=== PATIENT | male | born 1955 ===

== ENCOUNTER → 2021-05-28 | Outpatient (CLI) | payer MEDICARE, OTHER ==
--- NOTE | 2021-05-28 15:37 | CONS ---
CONSULTATION REASON FOR CONSULT: Sleep apnea. This patient was referred to me for sleep apnea evaluation. He is a and he is being taken care of through the [facility] in [place]. He is known to have several comorbidities. Nevertheless, he was referred to me because of excessive fatigue, tiredness and sleepiness. He has loud snoring, witnessed apneas, and he wakes up tired during the day. Currently he is retired. He used to be a clamp truck driver for many years. He goes to bed around midnight and wakes up between 6-8 a.m. in the morning. He has the same schedule over the weekend. He occasionally sleep walks. He occasionally wakes up choking, gasping for air and he does have some nocturia. No seizure activity overnight. His weight has been up slightly over the past 5 years by around 10 pounds. He wakes up probably once or twice in the middle of the night. He sleeps on his side and he does not take any naps during the day. PAST MEDICAL HISTORY: Hypertension, allergic rhinitis, coronary artery disease with previous coronary stenting, hyperlipidemia, vitamin D deficiency, osteoarthritis involving the shoulders, back, ankles and knees; PTSD/depression, acid reflux with a previous history of EGD indicating no evidence of any Murray's esophagus, history of seizure disorder, seizure- free, maintained on Keppra; history of left ankle fracture. SURGICAL HISTORY: Includes cardiac catheterizations, history of coronary stent, gastric surgery for peptic ulcer disease. FAMILY HISTORY: Father with hypertension. Mother with hypertension and diabetes mellitus. SOCIAL HISTORY: Smokes five cigarettes since the age of 17. Recently quit smoking. Rarely drinks alcohol. No history of illicit substance abuse or drug abuse. REVIEW OF SYSTEMS: Fourteen-point review of system was done, positive findings are as mentioned above in History of Present Illness. Of significance, the absence of any sleep paralysis, hallucinations or cataplexy. No history of any motor vehicle accident because of feeling drowsy or sleepy. No history of nocturnal chest pain, shortness of breath, heartburn. He has ongoing history of depression. No issues with memory or concentration. No history of any dementia. PHYSICAL EXAMINATION: BP is 156/95, pulse 94, respirations 16, temperature 98.2 saturation 95% on room air. Neck size 17 inches. Height is 5 feet 10 inches, weight is 248, BMI 35. GENERAL APPEARANCE: Calm, comfortable, no acute distress. HEAD is traumatic normocephalic. NECK is supple. Mallampati class 4. Edentulous. No goiter or neck masses. LUNGS: Diminished otherwise clear. HEART: Heart sounds are regular rate and rhythm. Normal S1, S2. No S3, S4. No murmurs. ABDOMEN: Soft, nontender, no organomegaly. EXTREMITIES: No edema, no cyanosis or clubbing. IMPRESSION: 1. Hypersomnia, [place] score of 19. Suspect obstructive sleep apnea based on history of snoring, witnessed apneas and chronic hypersomnia and sleepiness. 2. Coronary artery disease, previous coronary stenting. 3. Hypertension. 4. Hyperlipidemia. 5. History of hearing loss/tinnitus. 6. Acid reflux. 7. Osteoarthritis involving the shoulders, back, ankles and knees. 8. History of posttraumatic stress disorder. 9. History of smoking up to five cigarettes on a daily basis, quit smoking recently. 10.Allergic rhinitis. PLAN: 1. Set up this patient for polysomnogram here in the sleep center. 2. Further recommendations are to follow based on the results of the sleep study. MMODL / IJN: [id number] /
== END | disposition home or self-care (01) ==
LOC: SLEEP 14:05
PROVIDERS: ATTEND Internal Medicine Critical Care Medicine
DX: G47.10 Hypersomnia, unspecified (principal); I25.10 Atherosclerotic heart disease of native coronary artery without angina pectoris; I10 Essential (primary) hypertension; E78.5 Hyperlipidemia, unspecified; H91.90 Unspecified hearing loss, unspecified ear; K21.9 Gastro-esophageal reflux disease without esophagitis; M19.019 Primary osteoarthritis, unspecified shoulder; M17.10 Unilateral primary osteoarthritis, unspecified knee; F43.10 Post-traumatic stress disorder, unspecified; J30.9 Allergic rhinitis, unspecified; Z87.891 Personal history of nicotine dependence; Z95.5 Presence of coronary angioplasty implant and graft
CPT/HCPCS: 99202

== ENCOUNTER 2024-04-27 14:52 | Inpatient (IN) | payer OTHER, MEDICARE ==
--- NOTE | 2024-04-27 15:25 | ED ---
SOB HPI - General Source: patient, RN notes reviewed Mode of arrival: ambulatory Limitations: no limitations <Leslie Nolen - Last Filed: 04/27/24 15:23> <Gemma Read - Last Filed: 04/27/24 18:03> - General Chief Complaint: Chest Pain Stated Complaint: A-Fib Time Seen by Provider: 04/27/24 15:23 - History of Present Illness Initial Comments: Quick Note: This is a 68-year-old male who presents to the emergency department for new onset A-fib/a flutter. Patient saw his primary care provider yesterday for his 6-month checkup. He mentioned that he had been feeling very short of breath and fatigued recently. He is not quite sure how long this has been going on. They did an EKG which showed the patient to be in a flutter. Patient denies any history of this. Not currently taking any blood thinners. (Leslie Nolen) - Related Data Allergies Allergy/AdvReac Type Severity Reaction Status Date / Time bupropion [From Wellbutrin] Allergy Unknown Verified 04/27/24 15:15 fluoxetine [From Prozac] Allergy Unknown Verified 04/27/24 15:15 Penicillins Allergy Unknown Verified 04/27/24 15:15 Review of Systems ROS Other: All systems not noted in ROS Statement are negative. <Leslie Nolen - Last Filed: 04/27/24 15:23> ROS Other: All systems not noted in ROS Statement are negative. <Gemma Read - Last Filed: 04/27/24 18:03> ROS Statement: Those systems with pertinent positive or pertinent negative responses have been documented in the HPI. Past Medical History Past Medical History: Hypertension History of Any Multi-Drug Resistant Organisms: None Reported Past Surgical History: No Surgical Hx Reported Past Psychological History: PTSD Smoking Status: Current every day smoker Past Alcohol Use History: Occasional Past Drug Use History: None Reported <Leslie Nolen - Last Filed: 04/27/24 15:23> General Exam Limitations: no limitations <Leslie Nolen - Last Filed: 04/27/24 15:23> - General Exam Comments Initial Comments: Visual Physical Exam Vital signs reviewed General: Well-appearing, nontoxic, no acute distress. Head: Normocephalic, atraumatic Eyes: PERRLA, EOMI ENT: Airway patent Chest: Nonlabored breathing Skin: No visual rash, normal skin tone Neuro: Alert and oriented 3 Musculoskeletal: No gross abnormalities (Leslie Nolen) Course Vital Signs 04/27/24 04/27/24 04/27/24 15:11 15:56 17:33 Temperature 97.9 F Pulse Rate 113 H 116 H Pulse Rate [ 112 H Hardware Trainer ] Respiratory 18 20 Rate Blood Pressure 141/111 127/99 O2 Sat by Pulse 96 94 L Oximetry 04/27/24 17:56 Temperature Pulse Rate 101 H Pulse Rate [ Hardware Trainer ] Respiratory 18 Rate Blood Pressure 120/98 O2 Sat by Pulse 94 L Oximetry Medical Decision Making <Leslie Nolen - Last Filed: 04/27/24 15:23> - Lab Data Result diagrams: 04/27/24 15:24 04/27/24 15:24 <Gemma Read - Last Filed: 04/27/24 18:03> - Medical Decision Making I performed the QuickNote portion of this chart. Signed Leslie Nolen PA-C. (Leslie Nolen) Was pt. sent in by a medical professional or institution ([facility], [facility], urgent care, hospital, or senior care...) When possible be specific @ -[No] Did you speak to anyone other than the patient for history (EMS, parent, family, police, friend...)? What history was obtained from this source @ -[No] Did you review nursing and triage notes (agree or disagree)? Why? @ -[I reviewed and agree with nursing and triage notes] Were old charts reviewed (outside hosp., previous admission, EMS record, old EKG, old radiological studies, urgent care reports/EKG's, senior care records)? Report findings @ -[No old charts were reviewed] Differential Diagnosis (chest pain, altered mental status, abdominal pain women, abdominal pain men, vaginal bleeding, weakness, fever, dyspnea, syncope, headache, dizziness, GI bleed, back pain, seizure, CVA, palpatations, mental health, musculoskeletal)? @ -[not applicable] EKG interpreted by me (3pts min.). @ -Yes and demonstrates atrial flutter with a rate of 117. QRS 109. QTc of 393. No acute ST segment elevations. Some ST depression likely rate dependent X-rays interpreted by me (1pt min.). @ -[None done] CT interpreted by me (1pt min.). @ -[None done] U/S interpreted by me (1pt. min.). @ -[None done] What testing was considered but not performed or refused? (CT, X-rays, U/S, labs)? Why? @ -[None] What meds were considered but not given or refused? Why? @ -[None] Did you discuss the management of the patient with other professionals (professionals i.e. DrReema, PA, [facility], lab, RT, psych nurse, social security assessor, criminal lawyer, teacher, training officer, case folder)? Give summary @ -[No] Was smoking cessation discussed for >3mins.? @ -[No] Was critical care preformed (if so, how long)? @ -[No] Were there social determinants of health that impacted care today? How? (Homelessness, low income, unemployed, alcoholism, drug addiction, transportation, low edu. Level, literacy, decrease access to med. care, fdc, rehab)? @ -[No] Was there de-escalation of care discussed even if they declined (Discuss DNR or withdrawal of care, Hospice)? DNR status @ -[No] What co-morbidities impacted this encounter? (DM, HTN, Smoking, COPD, CAD, Cancer, CVA, ARF, Chemo, Hep., AIDS, mental health diagnosis, sleep apnea, morbid obesity)? @ -[None] Was patient admitted / discharged? Hospital course, mention meds given and route, prescriptions, significant lab abnormalities, going to OR and other pertinent info. @ -[hospital course] Undiagnosed new problem with uncertain prognosis? @ -[No] Drug Therapy requiring intensive monitoring for toxicity (Heparin, Nitro, Insulin, Cardizem)? @ -[No] Were any procedures done? @ -[No] Diagnosis/symptom? @ -[default] Acute, or Chronic, or Acute on Chronic? @ -[default] Uncomplicated (without systemic symptoms) or Complicated (systemic symptoms)? @ -[default] Side effects of treatment? @ -[No] Exacerbation, Progression, or Severe Exacerbation? @ -[No] Poses a threat to life or bodily function? How? (Chest pain, [place], [place], pneumonia, PE, COPD, DKA, ARF, appy, cholecystitis, CVA, Diverticulitis, Homicidal, Suicidal, threat to staff... and all critical care pts) @ -[No] (Gemma Read) - Lab Data Lab Results 04/27/24 04/27/24 04/27/24 Range/Units 15:24 15:24 15:24 WBC 9.4 (3.8-10.6) k/uL RBC 5.69 (4.30-5.90) m/uL Hgb 13.9 (13.0-17.5) gm/dL Hct 44.9 (39.0-53.0) % MCV 78.9 L (80.0-100.0) fL MCH 24.5 L (25.0-35.0) pg MCHC 31.1 (31.0-37.0) g/dL RDW 16.0 H (11.5-15.5) % Plt Count 341 (150-450) k/uL MPV 7.3 Neutrophils % 60 % Lymphocytes % 22 % Monocytes % 11 % Eosinophils % 3 % Basophils % 1 % Neutrophils # 5.7 (1.3-7.7) k/uL Lymphocytes # 2.1 (1.0-4.8) k/uL Monocytes # 1.0 (0-1.0) k/uL Eosinophils # 0.3 (0-0.7) k/uL Basophils # 0.1 (0-0.2) k/uL Hypochromasia Moderate Anisocytosis Slight Microcytosis Slight PT 11.1 (10.0-12.5) sec INR 1.0 (<1.2) APTT 23.9 (22.0-30.0) sec D-Dimer 0.25 (<0.60) mg/L FEU Sodium 131 L (137-145) mmol/L Potassium 4.5 (3.5-5.1) mmol/L Chloride 97 L (98-107) mmol/L Carbon Dioxide 27 (22-30) mmol/L Anion Gap 7 mmol/L BUN 10 (9-20) mg/dL Creatinine 0.87 (0.66-1.25) mg/dL Est GFR (CKD-EPI)AfAm >90 (>60 ml/min/1.73 sqM) Est GFR (CKD-EPI)NonAf 88 (>60 ml/min/1.73 sqM) Glucose 90 (74-99) mg/dL Calcium 8.5 (8.4-10.2) mg/dL Magnesium 1.9 (1.6-2.3) mg/dL Total Bilirubin 0.8 (0.2-1.3) mg/dL AST 40 (17-59) U/L ALT 35 (4-49) U/L Alkaline Phosphatase 97 (38-126) U/L Troponin I (0.000-0.034) ng/mL NT-Pro-B Natriuret Pep 1230 pg/mL Total Protein 7.2 (6.3-8.2) g/dL Albumin 4.4 (3.5-5.0) g/dL Urine Color Urine Appearance (Clear) Urine pH (5.0-8.0) Ur Specific [place] (1.001-1.035) Urine Protein (Negative) Urine Glucose (UA) (Negative) Urine Ketones (Negative) Urine Blood (Negative) Urine Nitrite (Negative) Urine Bilirubin (Negative) Urine Urobilinogen (<2.0) mg/dL Ur Leukocyte Esterase (Negative) 04/27/24 04/27/24 Range/Units 15:24 16:03 WBC (3.8-10.6) k/uL RBC (4.30-5.90) m/uL Hgb (13.0-17.5) gm/dL Hct (39.0-53.0) % MCV (80.0-100.0) fL MCH (25.0-35.0) pg MCHC (31.0-37.0) g/dL RDW (11.5-15.5) % Plt Count (150-450) k/uL MPV Neutrophils % % Lymphocytes % % Monocytes % % Eosinophils % % Basophils % % Neutrophils # (1.3-7.7) k/uL Lymphocytes # (1.0-4.8) k/uL Monocytes # (0-1.0) k/uL Eosinophils # (0-0.7) k/uL Basophils # (0-0.2) k/uL Hypochromasia Anisocytosis Microcytosis PT (10.0-12.5) sec INR (<1.2) APTT (22.0-30.0) sec D-Dimer (<0.60) mg/L FEU Sodium (137-145) mmol/L Potassium (3.5-5.1) mmol/L Chloride (98-107) mmol/L Carbon Dioxide (22-30) mmol/L Anion Gap mmol/L BUN (9-20) mg/dL Creatinine (0.66-1.25) mg/dL Est GFR (CKD-EPI)AfAm (>60 ml/min/1.73 sqM) Est GFR (CKD-EPI)NonAf (>60 ml/min/1.73 sqM) Glucose (74-99) mg/dL Calcium (8.4-10.2) mg/dL Magnesium (1.6-2.3) mg/dL Total Bilirubin (0.2-1.3) mg/dL AST (17-59) U/L ALT (4-49) U/L Alkaline Phosphatase (38-126) U/L Troponin I <0.012 (0.000-0.034) ng/mL NT-Pro-B Natriuret Pep pg/mL Total Protein (6.3-8.2) g/dL Albumin (3.5-5.0) g/dL Urine Color Colorless Urine Appearance Clear (Clear) Urine pH 7.0 (5.0-8.0) Ur Specific [place] 1.008 (1.001-1.035) Urine Protein Negative (Negative) Urine Glucose (UA) Negative (Negative) Urine Ketones Negative (Negative) Urine Blood Negative (Negative) Urine Nitrite Negative (Negative) Urine Bilirubin Negative (Negative) Urine Urobilinogen <2.0 (<2.0) mg/dL Ur Leukocyte Esterase Negative (Negative) Disposition <Leslie Nolen - Last Filed: 04/27/24 15:23> Is patient prescribed a controlled substance at d/c from ED?: No Time of Disposition: 18:03 Decision to Admit Reason: Admit from EC Decision Date: 04/27/24 Decision Time: 18:03 <Gemma Read - Last Filed: 04/27/24 18:03> Clinical Impression: New onset a-fib Disposition: ADMITTED IP TO THIS HOSP Condition: Stable Referrals: [facility] [Primary Care Provider] - 1-2 days
[2024-04-27 15:56] LABS: Anisocytosis Slight; Basophils # (A) 0.1 k/uL (0-0.2); Basophils % (A) 1 %; Eosinophils # (A) 0.3 k/uL (0-0.7); Eosinophils % (A) 3 %; HCT 44.9 % (39.0-53.0); HGB 13.9 gm/dL (13.0-17.5); Hypochromasia Moderate; Lymphocytes # (A) 2.1 k/uL (1.0-4.8); Lymphocytes % (A) 22 %; MCH 24.5 pg (25.0-35.0); MCHC 31.1 g/dL (31.0-37.0); MCV 78.9 fL (80.0-100.0); Mean Platelet Volume 7.3; Microcytosis Slight; Monocytes % (A) 11 %; Neutrophils # (A) 5.7 k/uL (1.3-7.7); Neutrophils % (A) 60 %; Platelet Count 341 k/uL (150-450); RBC 5.69 m/uL (4.30-5.90); WBC 9.4 k/uL (3.8-10.6)
[2024-04-27 16:03] LABS: ALT 35 U/L (4-49); AST 40 U/L (17-59); African American GFR (CKD) >90 (>60 ml/min/1.73 sqM); Albumin 4.4 g/dL (3.5-5.0); Alkaline Phosphatase 97 U/L (38-126); Anion Gap 7 mmol/L; Blood Urea Nitrogen 10 mg/dL (9-20); Calcium 8.5 mg/dL (8.4-10.2); Carbon Dioxide 27 mmol/L (22-30); Chloride 97 mmol/L (98-107); Glucose 90 mg/dL (74-99); Magnesium 1.9 mg/dL (1.6-2.3); Non-African American GFR(CKD) 88 (>60 ml/min/1.73 sqM); Potassium 4.5 mmol/L (3.5-5.1); Sodium 131 mmol/L (137-145); Total Bilirubin 0.8 mg/dL (0.2-1.3); Total Protein 7.2 g/dL (6.3-8.2)
[2024-04-27 16:11] LABS: NT-Pro-B-Type Natriuretic Pept 1230 pg/mL
[2024-04-27 16:12] LABS: Partial Thromboplastin Time 23.9 sec (22.0-30.0); Prothrombin Time 11.1 sec (10.0-12.5)
--- NOTE | 2024-04-27 16:39 | XR ---
EXAMINATION TYPE: XR chest 2V DATE OF EXAM: 04/27/2024 COMPARISON: None INDICATION: Chest pain TECHNIQUE: Frontal and lateral views of the chest are obtained. FINDINGS: The heart size is normal. The pulmonary vasculature is normal. The lungs are clear. IMPRESSION: 1. No acute pulmonary process.
[2024-04-27 16:41] LABS: Appearance,Urine Clear (Clear); Bilirubin,Urine Negative (Negative); Blood,Urine Negative (Negative); Color,Urine Colorless; Glucose,Urine (UA) Negative (Negative); Ketones,Urine Negative (Negative); Leukocyte Esterase,Urine Negative (Negative); Nitrite,Urine Negative (Negative); Protein,Urine Negative (Negative); Specific Gravity,Urine 1.008 (1.001-1.035); Urobilinogen,Urine <2.0 mg/dL (<2.0)
[2024-04-27] MEDS: DILTIAZEM 125 MG in SODIUM CHLORIDE 0.9% 100 ML IV SCH (17:26)
[2024-04-27] MEDS: DILTIAZEM DRIP BOLUS FROM BAG 1 MG SOLN IV ONE (17:27)
[2024-04-27] MEDS ORDERED: NALOXONE 0.4 MG/ML 1 ML VIAL IV PRN (18:03)
[2024-04-27] MEDS: HEPARIN SODIUM 1,000 UN/ML (10ML VL) IV ONE (19:04)
[2024-04-27] MEDS: HEPARIN SOD,PORK IN 0.45% NACL 25,000 UNIT in 0.45% NACL 1 250ML.BAG IV SCH (19:05)
[2024-04-27] MEDS: DILTIAZEM DRIP BOLUS FROM BAG 1 MG SOLN IV STA (20:00)
--- NOTE | 2024-04-27 22:44 | P.HPIM ---
History of Present Illness H&P Date: 04/27/24 Patient is a 68-year-old male with a PMH of hypertension who presents to the emergency room with complaints of shortness of breath, palpitations, chest discomfort, dizziness, and lower extremity edema. Patient reports the above symptoms have been ongoing for the past several months. He was seen by his PCP and was found to be in a flutter and was subsequently sent to the emergency room. Reports feeling significant better at the time of interview. Patient notes he has been experiencing intermittent substernal chest tightness along with palpitations and dyspnea on exertion over the past 2 to 3 months. He also has noticed gradually worsening lower extremity edema during this time. Denies history of any cardiac pathology including valvular disease or coronary artery disease. Denies experiencing cough, fever, chills, nausea, vomiting, abdominal pain, diarrhea. Chest x-ray in the emergency room was unremarkable with EKG showing a flutter at 117 bpm with RVR as reviewed by me. Laboratory evaluation revealed a WBC count of 9.4, hemoglobin 13.9, MCV 78.9, sodium 131, chloride 97, with an unremarkable UA, proBNP 1230, troponin less than 0.012 ED documentation reviewed and case discussed with ED provider. Review of systems: Pertinent positives and negatives as discussed in HPI, a complete review of systems was performed and all other systems are negative. Physical examination: Vital signs reviewed General: non toxic, no distress, appears at stated age, obese Derm: no unusual rashes/lesions, warm Head: atraumatic, normocephalic, symmetric Eyes: EOMI, no lid lag, anicteric sclera, pupils equal round reactive to light ENT: Nose and ears atraumatic Neck: No cervical lymphadenopathy, trachea midline, supple Mouth: no lip lesion, mucus membranes moist Cardiovascular: Irregularly irregular, no murmur, positive dorsalis pedis pulse bilateral, no edema Lungs: CTA bilateral, no rhonchi, no rales, no accessory muscle use Abdominal: soft, nontender to palpation, no guarding Ext: muscle strength 5 out of 5 in all 4 extremities grossly, no gross muscle atrophy, no contractures, Neuro: CN II-XI grossly intact, no gross focal neuro deficits Psych: Alert, oriented, appropriate affect Assessment: Newly diagnosed a flutter with RVR Hypochloremic hyponatremia Microcytosis Chronic conditions: Hypertension Imaging: Chest x-ray in the emergency room was unremarkable with EKG showing a flutter at 117 bpm with RVR as reviewed by me. Data Review: Laboratory evaluation revealed a WBC count of 9.4, hemoglobin 13.9, MCV 78.9, sodium 131, chloride 97, with an unremarkable UA, proBNP 1230, troponin less than 0.012 Plan: Continue with heparin and Cardizem infusions Cardiology consulted Cardiac monitoring Obtain echocardiogram Monitor BMP Check anemia panel DVT prophylaxis: Heparin infusion The patient is admitted with an anticipated fever than 2 midnight stay for luann luation of a flutter CODE STATUS: Full Code Discussed with: Patient Anticipated discharge place: Home Past Medical History Past Medical History: Hypertension History of Any Multi-Drug Resistant Organisms: None Reported Past Surgical History: No Surgical Hx Reported Past Psychological History: PTSD Smoking Status: Current every day smoker Past Alcohol Use History: Occasional Past Drug Use History: None Reported - Past Family History Mother Family Medical History: Hypertension Medications and Allergies Home Medications Medication Instructions Recorded Confirmed Type Cholecalciferol (Vitamin D3) 50 mcg PO DAILY 04/27/24 04/27/24 History [Vitamin D3 (50 Mcg = 2000 Iu)] Loratadine [Claritin] 10 mg PO DAILY 04/27/24 04/27/24 History Omeprazole [PriLOSEC] 20 mg PO AC-BID 04/27/24 04/27/24 History amLODIPine BESYLATE/BENAZEPRIL 2 cap PO DAILY 04/27/24 04/27/24 History [Lotrel 5-10 mg Capsule] tadalafiL 10 mg PO DAILY PRN 04/27/24 04/27/24 History Allergies Allergy/AdvReac Type Severity Reaction Status Date / Time amitriptyline Allergy Unknown Verified 04/27/24 19:18 azithromycin Allergy Unknown Verified 04/27/24 19:18 bee venom protein (honey bee) Allergy Unknown Verified 04/27/24 19:18 bupropion [From Wellbutrin] Allergy Unknown Verified 04/27/24 19:17 citalopram [From Celexa] Allergy Unknown Verified 04/27/24 19:18 fluoxetine [From Prozac] Allergy Unknown Verified 04/27/24 19:17 gabapentin Allergy Unknown Verified 04/27/24 19:18 oxycodone Allergy Unknown Verified 04/27/24 19:18 Penicillins Allergy Rash/Hives Verified 04/27/24 19:17 Physical Exam Vitals: Vital Signs Temp Pulse Pulse Resp BP BP Pulse Ox 04/27/24 21:50 77 04/27/24 21:35 97.9 F 77 16 128/86 97 04/27/24 21:02 98.0 F 76 14 130/89 92 L 04/27/24 19:30 112 H 22 121/98 93 L 04/27/24 19:08 121 H 16 121/87 93 L 04/27/24 17:56 101 H 18 120/98 94 L 04/27/24 17:33 116 H 20 127/99 94 L 04/27/24 15:56 112 H 04/27/24 15:11 97.9 F 113 H 18 141/111 96 Intake and Output 04/27/24 04/27/24 04/27/24 06:59 14:59 22:59 Intake Total 503.083 Balance 503.083 Intake: Intake, IV Titration 23.083 Amount Diltiazem 125 mg In 13.083 Sodium Chloride 0.9% 100 ml @ 10 MG/HR 10 mls/hr IV .[id number] [facility] Rx#: [id number] Heparin Sod,Pork in 0.45% 10 NaCl 25,000 unit In 0.45 % NaCl 1 250ml.bag @ 9.19 UNITS/KG/HR 10.004 mls/ hr IV .Q24H [facility] Rx#: [id number] Oral 480 Other: Weight 108.862 kg Results CBC & Chem 7: 04/27/24 15:24 04/27/24 15:24 Labs: Abnormal Lab Results - Last 24 Hours (Table) 04/27/24 04/27/24 Range/Units 15:24 15:24 MCV 78.9 L (80.0-100.0) fL MCH 24.5 L (25.0-35.0) pg RDW 16.0 H (11.5-15.5) % Sodium 131 L (137-145) mmol/L Chloride 97 L (98-107) mmol/L Thrombosis Risk Factor Assmnt - Choose All That Apply Any of the Below Risk Factors Present?: No
[2024-04-28] MEDS: HEPARIN SODIUM 1,000 UN/ML (10ML VL) IV PRN (02:21)
[2024-04-28 09:02] LABS: Anisocytosis Slight; Basophils # (A) 0.1 k/uL (0-0.2); Basophils % (A) 1 %; Eosinophils # (A) 0.3 k/uL (0-0.7); Eosinophils % (A) 4 %; HCT 41.2 % (39.0-53.0); HGB 12.5 gm/dL (13.0-17.5); Hypochromasia Moderate; Lymphocytes # (A) 1.6 k/uL (1.0-4.8); Lymphocytes % (A) 22 %; MCH 23.9 pg (25.0-35.0); MCHC 30.3 g/dL (31.0-37.0); MCV 79.1 fL (80.0-100.0); Mean Platelet Volume 7.4; Microcytosis Slight; Monocytes # (A) 0.6 k/uL (0-1.0); Monocytes % (A) 8 %; Neutrophils # (A) 4.4 k/uL (1.3-7.7); Neutrophils % (A) 63 %; Platelet Count 317 k/uL (150-450); RBC 5.21 m/uL (4.30-5.90); RDW 16.3 % (11.5-15.5)
[2024-04-28 09:07] LABS: INR 1.1 (<1.2); Partial Thromboplastin Time 54.8 sec (22.0-30.0); Prothrombin Time 11.6 sec (10.0-12.5)
[2024-04-28 09:18] LABS: African American GFR (CKD) >90 (>60 ml/min/1.73 sqM); Anion Gap 7 mmol/L; Blood Urea Nitrogen 9 mg/dL (9-20); Calcium 8.1 mg/dL (8.4-10.2); Carbon Dioxide 25 mmol/L (22-30); Chloride 96 mmol/L (98-107); Glucose 163 mg/dL (74-99); Non-African American GFR(CKD) >90 (>60 ml/min/1.73 sqM); Potassium 4.5 mmol/L (3.5-5.1); Sodium 128 mmol/L (137-145)
[2024-04-28] MEDS: PANTOPRAZOLE 40 MG TABLET PO SCH (09:31)
[2024-04-28] MEDS: lisinopriL 20 MG TAB PO SCH (09:32)
[2024-04-28] MEDS: amLODIPine 10 MG TAB PO SCH (10:49)
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
--- NOTE | 2024-04-28 11:15 | CA ---
Transthoracic Echo Report Name: Chao Rascon Age: 68 Gender: M : 1955 Exam Date: 04/28/2024 07:59 Exam Location: [facility] Ht (in): 71 Wt (lb): 240 Ordering Physician: Keena Cadena MD Attending/Referring Phys: Gas Meter Mechanic Kirstin Liang RDCS Procedure CPT: Indications: aflutter Cardiac Hx: Technical Quality: Technically difficult study Contrast 1: Definity Total Dose (mL): 2 Contrast 2: Total Dose (mL): MEASUREMENTS (Male / Female) Normal Values 2D ECHO LV Diastolic Diameter PLAX 5.9 cm 4.2 - 5.9 / 3.9 - 5.3 cm LV Systolic Diameter PLAX 5.2 cm IVS Diastolic Thickness 1.0 cm 0.6 - 1.0 / 0.6 - 0.9 cm LVPW Diastolic Thickness 1.2 cm 0.6 - 1.0 / 0.6 - 0.9 cm LV Relative Wall Thickness 0.4 RV Internal Dim ED PLAX 2.0 cm LV Diastolic Volume MOD 4C 119.0 cm??? LV Systolic Volume MOD 4C 81.1 cm??? LV Ejection Fraction MOD 4C 31.8 % LV Cardiac Index MOD 4C 1199.4 cm???/min???m??? LV Diastolic Length 4C 8.0 cm LV Systolic Length 4C 7.4 cm LA Volume 100.8 cm??? 18 - 58 / 22 - 52 cm??? LA Volume Index 42.5 cm???/m??? 16 - 28 cm???/m??? M-MODE Aortic Root Diameter MM 3.8 cm LA Systolic Diameter MM 4.7 cm LA Ao Ratio MM 1.2 AV Cusp Separation MM 2.6 cm DOPPLER AI Peak Velocity 302.3 cm/s AI Peak Gradient 36.6 mmHg AI Pressure Half Time 1080.3 ms TR Peak Velocity 300.5 cm/s TR Peak Gradient 46.3 mmHg Right Atrial Pressure 8.0 mmHg Pulmonary Artery Systolic Pressu 44.1 mmHg Right Ventricular Systolic Press 44.1 mmHg FINDINGS Left Ventricle Left ventricular ejection fraction is estimated at 30-35%. Left ventricular cavity size normal. Severely reduced global left ventricular systolic function. Left ventricular wall thickness normal. Left ventricular cavity size at the upper limits of normal. Right Ventricle Normal right ventricular size and function. Mild pulmonary hypertension. Right ventricular systolic pressure estimated at 44mmHg. Right Atrium Moderate right atrial dilatation. Left Atrium Severely increased left atrial volume. Mildly increased left atrial area. Mitral Valve Mitral valve thickened. Mitral annular calcification. Moderate mitral regurgitation. Aortic Valve Trileaflet aortic valve. Diffuse thickening (sclerosis) of the aortic valve cusps without reduced excursion. Trace to mild aortic regurgitation. Tricuspid Valve Structurally normal tricuspid valve. Mild tricuspid regurgitation. Pulmonic Valve Structurally normal pulmonic valve. Trace pulmonic regurgitation. Pericardium No pericardial or pleural effusion. Aorta Mildly dilated aortic annulus. CONCLUSIONS Technically difficult study. Definity was used Impaired LV function with EF between 30 to 35% Moderate mitral regurgitation Previewed by: Dr. Rene Mclaughlin MD (Electronically Signed) Final Date: 28 April 2024 11:14
[2024-04-28] MEDS: METOPROLOL TARTRATE 50 MG TAB PO SCH (13:30)
[2024-04-28] MEDS: FUROSEMIDE 10 MG/ML 2 ML VIAL IV SCH (13:30)
--- NOTE | 2024-04-28 14:13 | P.PN ---
Subjective Progress Note Date: 04/28/24 Hospital course: Patient is a pleasant 68-year-old male with a past medical history of hypertension, GERD and nicotine dependence. He presented to the hospital on 04/27/2024 from his PCPs office for concerns of new onset atrial flutter. Patient presented to his PCPs office for 6-month checkup with reports of feeling shortness of breath, exertional fatigue, bilateral lower extremity edema and palpitations. At that time patient was found to be in new onset atrial flutter and he was sent to the emergency department for evaluation. Upon arrival to our facility, patient underwent evaluation in the emergency department. Vital signs upon arrival show blood pressure 141/111, heart rate 113, respiratory rate 18, temp 97.9 F, and SpO2 of 96% on room air. EKG completed showing atrial flutter with RVR at 117 bpm. Chest x-ray negative for acute cardiopulmonary process. Labs completed and reviewed. CBC showing no significant abnormalities. Coagulation profile normal findings. D-dimer normal at 0.25. BMP showing hyponatremia with sodium of 131 and hypochloremia with chloride of 97. Liver profile was unremarkable. Troponin was negative at less than 0.012 and proBNP was elevated at 1230. He was started on low intensity heparin infusion and Cardizem infusion for rate control. Patient was admitted under our services with consultation to cardiology. Troponins were trended overnight all negative at less than 0.012 x 3 draws. TSH was normal findings at 1.960. Echocardiogram was completed showing a reduced EF of 30 to 35% and moderate mitral regurgitation. Physical exam: Vital signs reviewed and stable. General: Nontoxic, no distress and appears stated age. Derm: Skin warm and dry, normal coloration for ethnicity. Head: Atraumatic, normocephalic and symmetric. Eyes: EOMs intact, no lid lag, and anicteric sclera Mouth: no lip lesions, mucus membranes moist Cardiovascular: regular rate and rhythm with normal S1S2, systolic murmur, positive posterior tibial pulses bilaterally, and cap refill < 2 seconds. Lungs: Respirations even, regular, and unlabored on room air. Lungs CTA bilaterally, no rhonchi, no rales, no wheezing, and no accessory muscle usage. Abdominal: soft, nontender to palpation, no guarding, no appreciable organomegaly Ext: ROM intact. No gross muscle atrophy, 2+ bilateral lower extremity edema, no contractures Neuro: Speech clear, face symmetrical and CN II-XII grossly intact with no noted focal neuro deficits Psych: Alert and oriented to person, place, time, and situation. Appropriate and pleasant affect. Assessment and Plan of Care: New onset atrial flutter with RVR Acute systolic heart failure with his EF of 30 to 35% Hypertension Nicotine dependence GERD -Cardiology consulted, appreciate recommendations -Troponins were trended overnight all negative at less than 0.012 x 3 draws. -Continue heparin infusion pending further recommendations from cardiology, monitor PTT every 6 hours goal therapeutic rate of 44 to 79 seconds. Currently PTT therapeutic at 54.8 seconds. -TSH was normal findings at 1.960. -Echocardiogram was completed showing a reduced EF of 30 to 35% and moderate mitral regurgitation. -Telemetry monitoring -Cardiac diet -Continue amlodipine/benazepril 6-10 mg tablets, 2 tablets daily. -Patient remains on Cardizem infusion at 10 mg/h. -Recommend smoking cessation and order placed for nicotine patch 21 mg daily. -GI prophylaxis with Protonix 40 mg daily. Data and Imaging reviewed: -Troponins were trended overnight all negative at less than 0.012 x 3 draws. TSH was normal findings at 1.960. -Echocardiogram was completed and report reviewed showing a reduced EF of 30 to 35% and moderate mitral regurgitation. CODE STATUS: Full code DVT prophylaxis: Heparin Anticipated discharge date: Pending clinical course Anticipated discharge place: Home Patient was seen independently by Nurse Pracitioner. This document was prepared using [employer] dictation software. Please allow for errors in cotton ginner helper, while rare they do occur. Timmy Ugarte NP rendered care for this patient independently, reviewed the findings and plan as documented in the note above. I did not physically speak with or examine the patient on this date. Objective - Vital Signs Vital signs: Vital Signs Temp 97.9 F 04/27/24 21:35 Pulse 70 04/28/24 04:00 Resp 16 04/28/24 04:00 BP 127/74 04/28/24 04:00 Pulse Ox 92 L 04/28/24 04:00 FiO2 Intake & Output 04/27/24 04/28/24 04/28/24 18:59 06:59 18:59 Intake Total 575.445 Balance 575.445 Weight 108.862 kg 107.6 kg Intake: Intake, IV Titration 95.445 Amount Diltiazem 125 mg In 13.083 Sodium Chloride 0.9% 100 ml @ 10 MG/HR 10 mls/hr IV .[id number] [facility] Rx#: [id number] Heparin Sod,Pork in 0.45% 82.362 NaCl 25,000 unit In 0.45 % NaCl 1 250ml.bag @ 9.19 UNITS/KG/HR 10.004 mls/ hr IV .Q24H [facility] Rx#: [id number] Oral 480 Other: # Voids 3 - Labs CBC & Chem 7: 04/28/24 08:38 04/28/24 08:38 Labs: Abnormal Lab Results - Last 24 Hours (Table) 04/27/24 04/27/24 04/28/24 Range/Units 15:24 15:24 01:01 MCV 78.9 L (80.0-100.0) fL MCH 24.5 L (25.0-35.0) pg RDW 16.0 H (11.5-15.5) % APTT 35.1 H (22.0-30.0) sec Sodium 131 L (137-145) mmol/L Chloride 97 L (98-107) mmol/L
[2024-04-28 15:14] LABS: % Iron Saturation 6.49 (15.00-50.00); Ferritin 15.2 ng/mL (22.0-322.0); Iron 25 UG/DL (65-175); Total Iron Binding Capacity 385 UG/DL (228-460)
[2024-04-28] MEDS: NICOTINE 21MG/24HR PATCH TRANSDERM SCH (17:24)
[2024-04-28] MEDS: IPRATROPIUM-ALBUTEROL 3 ML NEB INHALATION PRN (17:34)
[2024-04-28] MEDS: APIXABAN 5 MG TAB PO SCH (21:06)
[2024-04-29 09:45] LABS: African American GFR (CKD) 89 (>60 ml/min/1.73 sqM); Anion Gap 5 mmol/L; Blood Urea Nitrogen 15 mg/dL (9-20); Calcium 7.9 mg/dL (8.4-10.2); Carbon Dioxide 28 mmol/L (22-30); Chloride 94 mmol/L (98-107); Glucose 135 mg/dL (74-99); Non-African American GFR(CKD) 77 (>60 ml/min/1.73 sqM); Potassium 4.2 mmol/L (3.5-5.1); Sodium 127 mmol/L (137-145)
--- NOTE | 2024-04-29 14:13 | P.PN ---
Subjective Progress Note Date: 04/29/24 Hospital course: Patient is a pleasant 68-year-old male with a past medical history of hypertension, GERD and nicotine dependence. He presented to the hospital on 04/27/2024 from his PCPs office for concerns of new onset atrial flutter. Patient presented to his PCPs office for 6-month checkup with reports of feeling shortness of breath, exertional fatigue, bilateral lower extremity edema and palpitations. At that time patient was found to be in new onset atrial flutter and he was sent to the emergency department for evaluation. Upon arrival to our facility, patient underwent evaluation in the emergency department. Vital signs upon arrival show blood pressure 141/111, heart rate 113, respiratory rate 18, temp 97.9 F, and SpO2 of 96% on room air. EKG completed showing atrial flutter with RVR at 117 bpm. Chest x-ray negative for acute cardiopulmonary process. Labs completed and reviewed. CBC showing no significant abnormalities. Coagulation profile normal findings. D-dimer normal at 0.25. BMP showing hyponatremia with sodium of 131 and hypochloremia with chloride of 97. Liver profile was unremarkable. Troponin was negative at less than 0.012 and proBNP was elevated at 1230. He was started on low intensity heparin infusion and Cardizem infusion for rate control. Patient was admitted under our services with consultation to cardiology. Troponins were trended overnight all negative at less than 0.012 x 3 draws. TSH was normal findings at 1.960. Echocardiogram was completed showing a reduced EF of 30 to 35% and moderate mitral regurgitation. Physical exam: Vital signs reviewed and stable. General: Nontoxic, no distress and appears stated age. Derm: Skin warm and dry, normal coloration for ethnicity. Head: Atraumatic, normocephalic and symmetric. Eyes: EOMs intact, no lid lag, and anicteric sclera Mouth: no lip lesions, mucus membranes moist Cardiovascular: regular rate and rhythm with normal S1S2, systolic murmur, positive posterior tibial pulses bilaterally, and cap refill < 2 seconds. Lungs: Respirations even, regular, and unlabored on room air. Lungs CTA bilaterally, no rhonchi, no rales, no wheezing, and no accessory muscle usage. Abdominal: soft, nontender to palpation, no guarding, no appreciable organomegaly Ext: ROM intact. No gross muscle atrophy, 2+ bilateral lower extremity edema, no contractures Neuro: Speech clear, face symmetrical and CN II-XII grossly intact with no noted focal neuro deficits Psych: Alert and oriented to person, place, time, and situation. Appropriate and pleasant affect. Assessment and Plan of Care: New onset atrial flutter with RVR Acute systolic heart failure with his EF of 30 to 35% Hypochloremic hyponatremia Hypertension Nicotine dependence GERD -Cardiology consulted, appreciate recommendations -Heparin infusion was discontinued and patient started on Eliquis 5 mg twice daily. -Cardizem infusion discontinued and patient started on metoprolol 50 mg twice daily and currently maintaining a controlled ventricular rate. -Echocardiogram was completed showing a reduced EF of 30 to 35% and moderate mitral regurgitation. -Patient was started on Lasix 20 mg IVP every 12 hours. -Patient to remain on continuous telemetry monitoring -Cardiac diet -Continue amlodipine/benazepril 6-10 mg tablets, 2 tablets daily. -Recommend smoking cessation and order placed for nicotine patch 21 mg daily. -GI prophylaxis with Protonix 40 mg daily. Data and Imaging reviewed: -Morning labs completed and reviewed. BMP revealing slightly worsening hyponatremia with sodium of 127 and chloride of 94. -Echocardiogram was completed and report reviewed showing a reduced EF of 30 to 35% and moderate mitral regurgitation. -Vital signs reviewed. Blood pressure 137/80, heart rate 74, respiratory rate 22, temp 97.7 F, and SpO2 of 96% on 2 L. CODE STATUS: Full code DVT prophylaxis: Heparin Anticipated discharge date: Pending clinical course Anticipated discharge place: Home Patient was seen independently by Nurse Pracitioner. This document was prepared using [employer] dictation software. Please allow for e rrors in cloth tester quality, while rare they do occur. Timmy Ugarte NP rendered care for this patient independently, reviewed the findings and plan as documented in the note above. I did not physically speak with or examine the patient on this date. Objective - Vital Signs Vital signs: Vital Signs Temp 97.5 F L 04/29/24 08:25 Pulse 71 04/29/24 08:25 Resp 20 04/29/24 08:25 BP 107/70 04/29/24 08:25 Pulse Ox 95 04/29/24 08:25 FiO2 Intake & Output 04/28/24 04/29/24 04/29/24 18:59 06:59 18:59 Intake Total 1131.917 125 10 Output Total 300 Balance 1131.917 -175 10 Weight 108.4 kg Intake: IV 10 Invasive Line 1 10 Intake, IV Titration 111.917 125 Amount Diltiazem 125 mg In 111.917 125 Sodium Chloride 0.9% 100 ml @ 10 MG/HR 10 mls/hr IV .[id number] [facility] Rx#: [id number] Oral 1020 0 Output: Urine 300 Other: # Voids 0 # Bowel Movements 0 - Labs CBC & Chem 7: 04/30/24 08:17 04/30/24 08:17 Labs: Abnormal Lab Results - Last 24 Hours (Table) 04/28/24 04/28/24 04/28/24 Range/Units 08:38 08:38 08:38 Hgb 12.5 L (13.0-17.5) gm/dL MCV 79.1 L (80.0-100.0) fL MCH 23.9 L (25.0-35.0) pg MCHC 30.3 L (31.0-37.0) g/dL RDW 16.3 H (11.5-15.5) % APTT 54.8 H (22.0-30.0) sec Sodium 128 L (137-145) mmol/L Chloride 96 L (98-107) mmol/L Glucose 163 H (74-99) mg/dL Calcium 8.1 L (8.4-10.2) mg/dL Iron 25 L (65-175) UG/DL % Saturation 6.49 L (15.00-50.00) Ferritin 15.2 L (22.0-322.0) ng/mL
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
[2024-04-29] MEDS: DAPAGLIFLOZIN PROPANEDIOL 10 MG TABLET PO SCH (16:17)
[2024-04-30 08:55] LABS: HCT 38.4 % (39.0-53.0); Hypochromasia Moderate; MCH 24.7 pg (25.0-35.0); MCHC 31.2 g/dL (31.0-37.0); MCV 79.2 fL (80.0-100.0); Mean Platelet Volume 7.7; Platelet Count 302 k/uL (150-450); RBC 4.85 m/uL (4.30-5.90); RDW 15.9 % (11.5-15.5)
[2024-04-30 09:01] LABS: Carbon Dioxide 30 mmol/L (22-30); Chloride 95 mmol/L (98-107); Glucose 84 mg/dL (74-99); Potassium 4.7 mmol/L (3.5-5.1); Sodium 130 mmol/L (137-145)
[2024-04-30 09:02] LABS: African American GFR (CKD) >90 (>60 ml/min/1.73 sqM); Anion Gap 5 mmol/L; Blood Urea Nitrogen 16 mg/dL (9-20); Calcium 8.2 mg/dL (8.4-10.2); Magnesium 1.9 mg/dL (1.6-2.3); Non-African American GFR(CKD) 85 (>60 ml/min/1.73 sqM)
[2024-04-30] MEDS: IV FLUID CONTINUATION 1,000 ML IV ONE (09:48)
[2024-04-30] MEDS: BENZOCAINE SPRAY 1 CAN TOPICAL ONE ×2 (09:56→10:20)
[2024-04-30] MEDS ORDERED: LIDOCAINE 1% INJ 10MG/ML (20 ML MDV) ONE (10:20)
[2024-04-30] MEDS ORDERED: PROPOFOL 10 MG/ML 20 ML VIAL IV ONE (10:20)
--- NOTE | 2024-04-30 10:42 | P.PN ---
Subjective Progress Note Date: 04/30/24 PROGRESS NOTE The patient is a 67-year-old male with known history of CAD, has underwent cardiac catheterization in 2008 and was found to have mild to moderate disease with ectatic vessel. He presented with atrial flutter of unknown duration. He was found to have cardiomyopathy with an ejection fraction of 30 to 35%. He continues to be dyspneic has no chest discomfort, no dizziness or palpitations. He continues to have episodes of rapid ventricular response. Hemodynamically he is stable. He denies any nausea or vomiting. Medications: Eliquis 5 mg twice a day, Farxiga 10 mg daily, Lasix 20 mg IV every 12 hours, Zestril 20 mg daily, metoprolol 50 mg twice a day. PHYSICAL EXAMINATION: Blood pressure 110/70 heart rate 110 LUNGS: Clear to auscultation HEART: Irregular rate and rhythm, S1, S2. No S3. No systolic murmur ABDOMEN: Soft, nontender, no organomegaly EXTREMETIES: Trace to 1+ edema LAB: Hemoglobin 12, potassium 4.7, BUN 16, creatinine 0.92. IMPRESSION: 1. Atrial flutter with rapid ventricle response of unknown duration 2. Cardiomyopathy probably secondary to the atrial flutter 3. History of mild to moderate CAD by cardiac catheterization in 2008 4. History of tobacco use PLAN: 1. Proceed with JOLANTA cardioversion to restore sinus mechanism 2. Change to oral diuretics 3. Start spironolactone 4. Depending on his progress further recommendations will be made Objective - Vital Signs Vital signs: Vital Signs Temp 97.8 F 04/30/24 08:22 Pulse 73 04/30/24 09:40 Resp 18 04/30/24 09:40 BP 110/79 04/30/24 09:40 Pulse Ox 96 04/30/24 09:40 FiO2 Intake & Output 04/29/24 04/30/24 04/30/24 18:59 06:59 18:59 Intake Total 1158 0 Balance 1158 0 Weight 60.963 kg Intake: IV 20 Invasive Line 1 20 Oral 1138 0 - Labs CBC & Chem 7: 04/30/24 08:17 04/30/24 08:17 Labs: Abnormal Lab Results - Last 24 Hours (Table) 04/30/24 04/30/24 Range/Units 08:17 08:17 Hgb 12.0 L (13.0-17.5) gm/dL Hct 38.4 L (39.0-53.0) % MCV 79.2 L (80.0-100.0) fL MCH 24.7 L (25.0-35.0) pg RDW 15.9 H (11.5-15.5) % Sodium 130 L (137-145) mmol/L Chloride 95 L (98-107) mmol/L Calcium 8.2 L (8.4-10.2) mg/dL
--- NOTE | 2024-04-30 10:44 | P.PCN ---
Date of Procedure: 04/30/24 Description of Procedure: Indication: Atrial flutter Procedure Description: After explaining the procedure to the patient, it's risk and complications, blood pressure, heart rate and O2 saturation were monitored. The throat was sprayed with Cetacaine. Patient received sedation per anesthesia department. The probe was introduced into the esophagus without difficulty. Images were obtained. Following that, the probe was removed. There was no immediate complication. Findings: Left atrial size is dilated, left atrial appendage is normal. Left ventricle systolic function is moderately to severely impaired with global hypokinesis. Ejection fraction 30 to 35%. The aortic valve, mitral valve and tricuspid valve appears to be normal. Descending thoracic aorta appears to be normal. No pericardial fusion was noted. Contrast bubble study revealed no shunting across the interatrial septum. Doppler: Pulse wave and color Doppler were obtained, and revealed moderate mitral and tricuspid regurgitation with no shunting across the interatrial septum Conclusion: 1. Dilated left atrium with normal appearance of the left atrial appendage 2. Moderately to severely impaired low ventricle systolic function with global hypokinesis 3. Moderate mitral and tricuspid regurgitation 4. No shunting across the interatrial septum 5. No pericardial effusion Cardioversion: After obtaining JOLANTA and sedated state synchronized biphasic cardioversion using 150 J was performed, there was no immediate complications.
[2024-04-30] MEDS: SPIRONOLACTONE 25 MG TAB PO SCH (11:44)
--- NOTE | 2024-04-30 16:21 | P.PN ---
Subjective Progress Note Date: 04/30/24 Hospital course: Patient is a pleasant 68-year-old male with a past medical history of hypertension, GERD and nicotine dependence. He presented to the hospital on 04/27/2024 from his PCPs office for concerns of new onset atrial flutter. Patient presented to his PCPs office for 6-month checkup with reports of feeling shortness of breath, exertional fatigue, bilateral lower extremity edema and palpitations. At that time patient was found to be in new onset atrial flutter and he was sent to the emergency department for evaluation. Upon arrival to our facility, patient underwent evaluation in the emergency department. Vital signs upon arrival show blood pressure 141/111, heart rate 113, respiratory rate 18, temp 97.9 F, and SpO2 of 96% on room air. EKG completed showing atrial flutter with RVR at 117 bpm. Chest x-ray negative for acute cardiopulmonary process. Labs completed and reviewed. CBC showing no significant abnormalities. Coagulation profile normal findings. D-dimer normal at 0.25. BMP showing hyponatremia with sodium of 131 and hypochloremia with chloride of 97. Liver profile was unremarkable. Troponin was negative at less than 0.012 and proBNP was elevated at 1230. He was started on low intensity heparin infusion and Cardizem infusion for rate control. Patient was admitted under our services with consultation to cardiology. Troponins were trended overnight all negative at less than 0.012 x 3 draws. TSH was normal findings at 1.960. Echocardiogram was completed showing a reduced EF of 30 to 35% and moderate mitral regurgitation. Patient was taken down for JOLANTA with cardioversion. JOLANTA revealed dilated left atrium, moderately to severely impaired low ventricular systolic function with global hypokinesis, and moderate mitral and tricuspid regurgitation with a EF of 30 to 35%. Cardioversion was successful in c onverting patient back into normal sinus mechanism. Physical exam: Vital signs reviewed and stable. General: Nontoxic, no distress and appears stated age. Derm: Skin warm and dry, normal coloration for ethnicity. Head: Atraumatic, normocephalic and symmetric. Eyes: EOMs intact, no lid lag, and anicteric sclera Mouth: no lip lesions, mucus membranes moist Cardiovascular: regular rate and rhythm with normal S1S2, systolic murmur, positive posterior tibial pulses bilaterally, and cap refill < 2 seconds. Lungs: Respirations even, regular, and unlabored on room air. Lungs CTA bilaterally, no rhonchi, no rales, no wheezing, and no accessory muscle usage. Abdominal: soft, nontender to palpation, no guarding, no appreciable organomegaly Ext: ROM intact. No gross muscle atrophy, 2+ bilateral lower extremity edema, no contractures Neuro: Speech clear, face symmetrical and CN II-XII grossly intact with no noted focal neuro deficits Psych: Alert and oriented to person, place, time, and situation. Appropriate and pleasant affect. Assessment and Plan of Care: New onset atrial flutter with RVR Acute systolic heart failure with his EF of 30 to 35% Hypochloremic hyponatremia, improving with IV diuresis Hypertension Nicotine dependence GERD -Cardiology planning, took patient for JOLANTA with cardioversion. -JOLANTA revealed dilated left atrium, moderately to severely impaired low ventricular systolic function with global hypokinesis, and moderate mitral and tricuspid regurgitation with a EF of 30 to 35%. -Cardioversion was successful in converting patient back into normal sinus mechanism. -Patient to continue Eliquis 5 mg twice daily and metoprolol 50 mg twice daily. -Patient was started on Lasix 20 mg IVP every 12 hours. -Patient to remain on continuous telemetry monitoring -Continue amlodipine/benazepril 6-10 mg tablets, 2 tablets daily. -Recommend smoking cessation and order placed for nicotine patch 21 mg daily. -GI prophylaxis with Protonix 40 mg daily. Data and Imaging reviewed: -Morning labs completed and reviewed. CBC showing stable macrocytic anemia with hemoglobin of 12.0. BMP showing improvement of hypochloremic hyponatremia with sodium of 130 and chloride of 95. Museum was 1.9. TSH was 1.960. -JOLANTA revealed dilated left atrium, moderately to severely impaired low ventricular systolic function with global hypokinesis, and moderate mitral and tricuspid regurgitation with a EF of 30 to 35%. Cardioversion was successful in converting patient back into normal sinus mechanism. -Vital signs reviewed. Blood pressure 114/78, heart rate 86, respiratory rate 20, temp 97.6 F, and SpO2 of 95% on 3 L. CODE STATUS: Full code DVT prophylaxis: Heparin Anticipated discharge date: Pending clinical course Anticipated discharge place: Home Patient was seen independently by Nurse Pracitioner. This document was prepared using [employer] dictation software. Please allow for errors in plant protection superintendent, while rare they do occur. .Timmy Ugarte NP rendered care for this patient independently, reviewed the findings and plan as documented in the note above. I did not physically speak with or examine the patient on this date. Objective - Vital Signs Vital signs: Vital Signs Temp 97.8 F 04/30/24 08:22 Pulse 128 H 04/30/24 08:22 Resp 20 04/30/24 08:22 BP 115/78 04/30/24 08:22 Pulse Ox 97 04/30/24 08:22 FiO2 Intake & Output 04/29/24 04/30/24 04/30/24 18:59 06:59 18:59 Intake Total 1158 0 Balance 1158 0 Weight 60.963 kg Intake: IV 20 Invasive Line 1 20 Oral 1138 0 - Labs CBC & Chem 7: 04/30/24 08:17 04/30/24 08:17 Labs: Abnormal Lab Results - Last 24 Hours (Table) 04/29/24 Range/Units 09:05 Sodium 127 L (137-145) mmol/L Chloride 94 L (98-107) mmol/L Glucose 135 H (74-99) mg/dL Calcium 7.9 L (8.4-10.2) mg/dL
[2024-04-30] MEDS: FUROSEMIDE 20 MG TAB PO SCH (22:25)
[2024-05-01 06:54] LABS: Anisocytosis Slight; HCT 38.5 % (39.0-53.0); Hypochromasia Moderate; MCH 24.8 pg (25.0-35.0); MCHC 31.1 g/dL (31.0-37.0); MCV 79.8 fL (80.0-100.0); Mean Platelet Volume 7.2; Platelet Count 284 k/uL (150-450); RBC 4.83 m/uL (4.30-5.90); RDW 16.3 % (11.5-15.5)
[2024-05-01 07:22] LABS: African American GFR (CKD) 89 (>60 ml/min/1.73 sqM); Anion Gap 4 mmol/L; Blood Urea Nitrogen 17 mg/dL (9-20); Carbon Dioxide 31 mmol/L (22-30); Chloride 94 mmol/L (98-107); Glucose 85 mg/dL (74-99); Magnesium 2.1 mg/dL (1.6-2.3); Non-African American GFR(CKD) 77 (>60 ml/min/1.73 sqM); Potassium 4.6 mmol/L (3.5-5.1); Sodium 129 mmol/L (137-145)
--- NOTE | 2024-05-01 10:05 | P.DS ---
Providers Date of admission: 04/27/24 18:04 Expected date of discharge: 05/01/24 Attending physician: Katelyn Dickinson MD Consults: 04/27/24 18:03 Consult Physician Urgent Consulting Provider: [facility] Consult Reason/Comments: new onset afib Do you want consulting provider notified?: Yes Primary care physician: [facility] Course: Discharge Diagnosis: New onset atrial flutter with RVR. Patient was started on anticoagulation and initially Cardizem infusion followed by placement on metoprolol. Echocardiogram was completed showing a reduced EF of 30 to 35% and moderate mitral regurgitation. Patient was taken down for JOLANTA with cardioversion. JOLANTA revealed dilated left atrium, moderately to severely impaired low ventricular systolic function with global hypokinesis, and moderate mitral and tricuspid regurgitation with a EF of 30 to 35%. Cardioversion was successful in conver ting patient back into normal sinus mechanism. Patient monitored overnight maintaining sinus mechanism and was cleared from cardiology perspective for discharge. Medically, patient stable at this time and to be discharged home. Prescriptions sent for Aldactone 25 mg daily, Eliquis 5 mg twice daily, Farxiga 10 mg daily, metoprolol 50 mg twice daily, and Lasix 20 mg twice daily. Ischemic cardiomyopathy/acute systolic heart failure with his EF of 30 to 35% Hypochloremic hyponatremia, improved with IV diuresis Hypertension. Continue amlodipine/benazepril 6-10 mg tablets, 2 tablets daily, metoprolol 50 mg twice daily, Aldactone 25 mg daily, and Lasix 20 mg twice daily. Nicotine dependence. Recommend smoking cessation. GERD. Continue GI prophylaxis with Protonix 40 mg daily. Hospital course: Patient is a pleasant 68-year-old male with a past medical history of hypertension, GERD and nicotine dependence. He presented to the hospital on 04/27/2024 from his PCPs office for concerns of new onset atrial flutter. Patient presented to his PCPs office for 6-month checkup with reports of feeling shortness of breath, exertional fatigue, bilateral lower extremity edema and palpitations. At that time patient was found to be in new onset atrial flutter and he was sent to the emergency department for evaluation. Upon arrival to our facility, patient underwent evaluation in the emergency department. Vital signs upon arrival show blood pressure 141/111, heart rate 113, respiratory rate 18, temp 97.9 F, and SpO2 of 96% on room air. EKG completed showing atrial flutter with RVR at 117 bpm. Chest x-ray negative for acute cardiopulmonary process. Labs completed and reviewed. CBC showing no significant abnormalities. Coagulation profile normal findings. D-dimer normal at 0.25. BMP showing hyponatremia with sodium of 131 and hypochloremia with chloride of 97. Liver profile was unremarkable. Troponin was negative at less than 0.012 and proBNP was elevated at 1230. He was started on low intensity heparin infusion and Cardizem infusion for rate control. Patient was admitted under our services with consultation to cardiology. Troponins were trended overnight all negative at less than 0.012 x 3 draws. TSH was normal findings at 1.960. Echocardiogram was completed showing a reduced EF of 30 to 35% and moderate mitral regurgitation. Patient was taken down for JOLANTA with cardioversion. JOLANTA revealed dilated left atrium, moderately to severely impaired low ventricular systolic function with global hypokinesis, and moderate mitral and tricuspid regurgitatio n with a EF of 30 to 35%. Cardioversion was successful in converting patient back into normal sinus mechanism. Patient again monitored overnight maintaining sinus mechanism and was cleared from cardiology perspective for discharge. Ambulatory pulse ox was completed showing no needs for home oxygen. Medically, patient stable at this time and to be discharged home. Prescriptions sent for Aldactone 25 mg daily, Eliquis 5 mg twice daily, Farxiga 10 mg daily, metoprolol 50 mg twice daily, and Lasix 20 mg twice daily. Patient to follow-up outpatient with PCP in 1 to 2 days and with dry cleaner in 1 to 2 weeks. Physical exam: Vital signs reviewed and stable. General: Nontoxic, no distress and appears stated age. Derm: Skin warm and dry, normal coloration for ethnicity. Head: Atraumatic, normocephalic and symmetric. Eyes: EOMs intact, no lid lag, and anicteric sclera Mouth: no lip lesions, mucus membranes moist Cardiovascular: regular rate and rhythm with normal S1S2, systolic murmur, positive posterior tibial pulses bilaterally, and cap refill < 2 seconds. Lungs: Respirations even, regular, and unlabored on room air. Lungs CTA bila terally, no rhonchi, no rales, no wheezing, and no accessory muscle usage. Abdominal: soft, nontender to palpation, no guarding, no appreciable organomegaly Ext: ROM intact. No gross muscle atrophy, 2+ bilateral lower extremity edema, no contractures Neuro: Speech clear, face symmetrical and CN II-XII grossly intact with no noted focal neuro deficits Psych: Alert and oriented to person, place, time, and situation. Appropriate and pleasant affect. A total of 38 minutes of time were spent preparing this complex discharge summary. Pt was discharged on 05/01/2024 at 9:57 AM. Patient was seen independently by Nurse Practitioner. This document was prepared using [employer] dictation software. Please allow for errors in diffusion furnace operator while rare they do occur. Timmy Ugarte NP rendered care for this patient independently, reviewed the findings and plan as documented in the note above. I did not physically speak with or examine the patient on this date. Patient Condition at Discharge: Stable Plan - Discharge Summary Discharge Rx Participant: No New Discharge Prescriptions: New Spironolactone [Aldactone] 25 mg PO DAILY 30 Days #30 tablet Dapagliflozin Propanediol [Farxiga] 10 mg PO DAILY 30 Days #30 tablet Furosemide [Lasix] 20 mg PO BID 30 Days #60 tablet Amiodarone [Cordarone] 400 mg PO BID 30 Days #58 tab Apixaban [Eliquis] 5 mg PO BID 30 Days #60 tab Metoprolol Tartrate [Lopressor] 50 mg PO BID 30 Days #60 tab Continue Loratadine [Claritin] 10 mg PO DAILY tadalafiL 10 mg PO DAILY PRN PRN Reason: E.D. Omeprazole [PriLOSEC] 20 mg PO AC-BID amLODIPine BESYLATE/BENAZEPRIL [Lotrel 5-10 mg Capsule] 2 cap PO DAILY Cholecalciferol (Vitamin D3) [Vitamin D3 (50 Mcg = 2000 Iu)] 50 mcg PO DAILY Discharge Medication List Cholecalciferol (Vitamin D3) [Vitamin D3 (50 Mcg = 2000 Iu)] 50 mcg PO DAILY 04/27/24 [History] Loratadine [Claritin] 10 mg PO DAILY 04/27/24 [History] Omeprazole [PriLOSEC] 20 mg PO AC-BID 04/27/24 [History] amLODIPine BESYLATE/BENAZEPRIL [Lotrel 5-10 mg Capsule] 2 cap PO DAILY 04/27/24 [History] tadalafiL 10 mg PO DAILY PRN 04/27/24 [History] Amiodarone [Cordarone] 400 mg PO BID 30 Days #58 tab 05/02/24 [Rx] Apixaban [Eliquis] 5 mg PO BID 30 Days #60 tab 05/02/24 [Rx] Dapagliflozin Propanediol [Farxiga] 10 mg PO DAILY 30 Days #30 tablet 05/02/24 [Rx] Furosemide [Lasix] 20 mg PO BID 30 Days #60 tablet 05/02/24 [Rx] Metoprolol Tartrate [Lopressor] 50 mg PO BID 30 Days #60 tab 05/02/24 [Rx] Spironolactone [Aldactone] 25 mg PO DAILY 30 Days #30 tablet 05/02/24 [Rx] Follow up Appointment(s)/Referral(s): Leighann De Leon MD [STAFF PHYSICIAN] - 1 Week (Office to call with appointment date and time.) [facility],Clinic [Primary Care Provider] - 1-2 days (Office unavailable to schedule appointment at time of discharge. Please ensure office is aware this is an appointment following a hospital stay.) Patient Instructions/Handouts: Atrial Flutter (DC), Cardioversion (DC) Activity/Diet/Wound Care/Special Instructions: . Activity: As tolerated. Take breaks as needed. Diet: Heart healthy and carb consistent diet. Avoid salts, or foods with hidden salts such as canned or boxed foods and frozen dinners. Extra salt makes your heart work harder and traps the fluid in your body for longer. Special Instructions: Take all of your medications as directed and remember to keep all of your doctor's appointments and follow-up as needed. You are also being discharged home on a blood thinner, Eliquis This is very important to take daily as directed until otherwise advised by your dry cleaner-Dr. De Leon. Being that you are being placed on a blood thinner it is very important to watch for any signs of bleeding and notify your doctor immediately if you notice any bleeding. It is also important to remove any trip hazards such as rugs or loose extension cords from your home to prevent unnecessary falls and if you do experience a fall or head injury, it is extremely important to be evaluated by a medical provider immediately to ensure no internal bleeding. Thank you for allowing us to participate in your care, it was truly a pleasure having you for our patient and again, THANK YOU for your Service, It is ALWAYS an honor having the opportunity to be able to provide care to a !!! . Discharge Disposition: HOME SELF-CARE
--- NOTE | 2024-05-01 10:34 | P.PN ---
Subjective HISTORY OF PRESENT ILLNESS: Patient examined this morning at the bedside. Patient currently denies chest pain or pressure. He denies shortness of breath. He does report some dizziness with postural changes. Patient underwent JOLANTA and cardioversion yesterday. He is maintaining sinus mechanism this morning. Vital signs are stable. PHYSICAL EXAM: VITAL SIGNS: Reviewed. GENERAL: Well-developed in no acute distress. NECK: Supple. No JVD or thyromegaly LUNGS: Respirations even and unlabored. Lungs essentially clear to auscultation bilaterally. HEART: Regular rate and rhythm. S1 and S2 heard. EXTREMITIES: Normal range of motion. No clubbing or cyanosis. Peripheral pulses intact. No lower extremity edema ASSESSMENT: Typical atrial flutter with RVR of unknown duration Status post JOLANTA and cardioversion, April 30, 2024, maintaining sinus mechanism Cardiomyopathy, suspect nonischemic secondary to atrial flutter Mild to moderate CAD per cardiac catheterization 2008 Nicotine dependence PLAN: Continue current cardiac medications Patient is stable for discharge home today from a cardiac standpoint Patient to follow-up in the office with Dr. De Leon in 1 week Nurse practitioner note has been reviewed by physician. Signing provider agrees with the documented findings, assessment, and plan of care documented by COMMERCIAL CONSTRUCTION ESTIMATOR as a scribe. Objective - Vital Signs Vital signs: Vital Signs Temp 98.6 F 05/01/24 08:46 Pulse 90 05/01/24 10:07 Resp 18 05/01/24 08:46 BP 119/75 05/01/24 08:46 Pulse Ox 96 05/01/24 10:07 FiO2 Intake & Output 04/30/24 05/01/24 05/01/24 18:59 06:59 18:59 Intake Total 358 20 250 Output Total 650 500 Balance -292 20 -250 Weight 104.5 kg Intake: IV 120 20 10 Invasive Line 1 20 20 10 Oral 238 240 Output: Urine 650 500 Other: Voiding Method Toilet Urinal # Voids 1 1 # Bowel Movements 1 - Labs CBC & Chem 7: 05/01/24 06:03 05/01/24 06:03 Labs: Abnormal Lab Results - Last 24 Hours (Table) 05/01/24 05/01/24 Range/Units 06:03 06:03 Hgb 12.0 L (13.0-17.5) gm/dL Hct 38.5 L (39.0-53.0) % MCV 79.8 L (80.0-100.0) fL MCH 24.8 L (25.0-35.0) pg RDW 16.3 H (11.5-15.5) % Sodium 129 L (137-145) mmol/L Chloride 94 L (98-107) mmol/L Carbon Dioxide 31 H (22-30) mmol/L Calcium 8.0 L (8.4-10.2) mg/dL
[2024-05-01] MEDS: AMIODARONE 200 MG TAB PO SCH (10:57)
[2024-05-02 04:14] VITALS: TEMP 97.8
[2024-05-02] MEDS: LORazepam 1 MG TAB PO STA (05:03)
[2024-05-02 08:41] LABS: Anisocytosis Slight; HCT 39.1 % (39.0-53.0); Hypochromasia Slight; MCH 24.4 pg (25.0-35.0); MCHC 30.7 g/dL (31.0-37.0); MCV 79.5 fL (80.0-100.0); Mean Platelet Volume 7.2; Platelet Count 301 k/uL (150-450); RBC 4.92 m/uL (4.30-5.90); RDW 16.2 % (11.5-15.5); WBC 7.7 k/uL (3.8-10.6)
[2024-05-02 08:57] LABS: ALT 50 U/L (4-49); AST 38 U/L (17-59); African American GFR (CKD) 88 (>60 ml/min/1.73 sqM); Alkaline Phosphatase 90 U/L (38-126); Anion Gap 6 mmol/L; Blood Urea Nitrogen 15 mg/dL (9-20); Calcium 8.3 mg/dL (8.4-10.2); Carbon Dioxide 28 mmol/L (22-30); Chloride 93 mmol/L (98-107); Glucose 175 mg/dL (74-99); Magnesium 1.9 mg/dL (1.6-2.3); Non-African American GFR(CKD) 77 (>60 ml/min/1.73 sqM); Potassium 4.7 mmol/L (3.5-5.1); Sodium 127 mmol/L (137-145); Total Protein 6.7 g/dL (6.3-8.2)
[2024-05-02 09:12] VITALS: BP 147/94; PULSE 74; RESP 18
--- NOTE | 2024-05-02 11:21 | P.DS ---
Providers Date of admission: 04/27/24 18:04 Expected date of discharge: 05/02/24 Attending physician: Katelyn Dickinson MD Consults: 04/27/24 18:03 Consult Physician Urgent Consulting Provider: [facility] Consult Reason/Comments: new onset afib Do you want consulting provider notified?: Yes Primary care physician: [place] Hospital Course: Discharge Diagnosis: New onset atrial flutter with RVR. Patient was started on anticoagulation and initially Cardizem infusion followed by placement on metoprolol. Echocardiogram was completed showing a reduced EF of 30 to 35% and moderate mitral regurgitation. Patient was taken down for JOLANTA with cardioversion. JOLANTA revealed dilated left atrium, moderately to severely impaired low ventricular systolic function with global hypokinesis, and moderate mitral and tricuspid regurgitation with a EF of 30 to 35%. Cardioversion was successful in conver ting patient back into normal sinus mechanism. Patient monitored closely and has been maintaining sinus mechanism. He was ambulated in the halls and had no further episodes of atrial flutter since beginning amiodarone. Pt cleared from cardiology perspective for discharge. Medically, patient stable at this time and to be discharged home. Prescriptions were sent for Amiodarone taper, Aldactone 25 mg daily, Eliquis 5 mg twice daily, Farxiga 10 mg daily, metoprolol 50 mg twice daily, and Lasix 20 mg twice daily. Ischemic cardiomyopathy/acute systolic heart failure with his EF of 30 to 35% Hypochloremic hyponatremia, improved with IV diuresis Hypertension. Continue amlodipine/benazepril 6-10 mg tablets, 2 tablets daily, metoprolol 50 mg twice daily, Aldactone 25 mg daily, and Lasix 20 mg twice daily. Nicotine dependence. Recommend smoking cessation. GERD. Continue GI prophylaxis with Protonix 40 mg daily. Hospital course: Patient is a pleasant 68-year-old male with a past medical history of hypertension, GERD and nicotine dependence. He presented to the hospital on 04/27/2024 from his PCPs office for concerns of new onset atrial flutter. Patient presented to his PCPs office for 6-month checkup with reports of feeling shortness of breath, exertional fatigue, bilateral lower extremity edema and palpitations. At that time patient was found to be in new onset atrial flutter and he was sent to the emergency department for evaluation. Upon arrival to our facility, patient underwent evaluation in the emergency department. Vital signs upon arrival show blood pressure 141/111, heart rate 113, respiratory rate 18, temp 97.9 F, and SpO2 of 96% on room air. EKG completed showing atrial flutter with RVR at 117 bpm. Chest x-ray negative for acute cardiopulmonary process. Labs completed and reviewed. CBC showing no significant abnormalities. Coagulation profile normal findings. D-dimer normal at 0.25. BMP showing hyponatremia with sodium of 131 and hypochloremia with chloride of 97. Liver profile was unremarkable. Troponin was negative at less than 0.012 and proBNP was elevated at 1230. He was started on low intensity heparin infusion and Cardizem infusion for rate control. Patient was admitted under our services with consultation to cardiology. Troponins were trended overnight all negative at less than 0.012 x 3 draws. TSH was normal findings at 1.960. Echocardiogram was completed showing a reduced EF of 30 to 35% and moderate mitral regurgitation. Patient was taken down for JOLANTA with cardioversion. JOLANTA revealed dilated left atrium, moderately to severely impaired low ventricular systolic function with global hypokinesis, and moderate mitral and tricuspid regurgitation with a EF of 30 to 35%. Cardioversion was successful in convert ing patient back into normal sinus mechanism. Patient again monitored overnight maintaining sinus mechanism and was cleared from cardiology perspective for discharge. Ambulatory pulse ox was completed showing no needs for home oxygen. Medically, patient stable at this time and to be discharged home. Prescriptions sent for Aldactone 25 mg daily, Eliquis 5 mg twice daily, Farxiga 10 mg daily, metoprolol 50 mg twice daily, and Lasix 20 mg twice daily. Patient to follow-up outpatient with PCP in 1 to 2 days and with binding dyer in 1 to 2 weeks. Physical exam: Vital signs reviewed and stable. General: Nontoxic, no distress and appears stated age. Derm: Skin warm and dry, normal coloration for ethnicity. Head: Atraumatic, normocephalic and symmetric. Eyes: EOMs intact, no lid lag, and anicteric sclera Mouth: no lip lesions, mucus membranes moist Cardiovascular: regular rate and rhythm with normal S1S2, systolic murmur, positive posterior tibial pulses bilaterally, and cap refill < 2 seconds. Lungs: Respirations even, regular, and unlabored on room air. Lungs CTA bilaterally, no rhonchi, no rales, no wheezing, and no accessory muscle usage. Abdominal: soft, nontender to palpation, no guarding, no appreciable organomegaly Ext: ROM intact. No gross muscle atrophy, 2+ bilateral lower extremity edema, no contractures Neuro: Speech clear, face symmetrical and CN II-XII grossly intact with no noted focal neuro deficits Psych: Alert and oriented to person, place, time, and situation. Appropriate and pleasant affect. A total of 37 minutes of time were spent preparing this complex discharge summary. Pt was discharged on 05/02/2024 at 9:52 AM. Patient was seen independently by Nurse Practitioner. This document was prepared using [employer] dictation software. Please allow for errors in combination presser while rare they do occur. Timmy Ugarte NP rendered care for this patient independently, reviewed the findings and plan as documented in the note above. I did not physically speak with or examine the patient on this date. Patient Condition at Discharge: Stable Plan - Discharge Summary Discharge Rx Participant: No New Discharge Prescriptions: New Spironolactone [Aldactone] 25 mg PO DAILY 30 Days #30 tablet Dapagliflozin Propanediol [Farxiga] 10 mg PO DAILY 30 Days #30 tablet Furosemide [Lasix] 20 mg PO BID 30 Days #60 tablet Amiodarone [Cordarone] 400 mg PO BID 30 Days #58 tab Apixaban [Eliquis] 5 mg PO BID 30 Days #60 tab Metoprolol Tartrate [Lopressor] 50 mg PO BID 30 Days #60 tab Continue Loratadine [Claritin] 10 mg PO DAILY tadalafiL 10 mg PO DAILY PRN PRN Reason: E.D. Omeprazole [PriLOSEC] 20 mg PO AC-BID amLODIPine BESYLATE/BENAZEPRIL [Lotrel 5-10 mg Capsule] 2 cap PO DAILY Cholecalciferol (Vitamin D3) [Vitamin D3 (50 Mcg = 2000 Iu)] 50 mcg PO DAILY Discharge Medication List Cholecalciferol (Vitamin D3) [Vitamin D3 (50 Mcg = 2000 Iu)] 50 mcg PO DAILY 04/27/24 [History] Loratadine [Claritin] 10 mg PO DAILY 04/27/24 [History] Omeprazole [PriLOSEC] 20 mg PO AC-BID 04/27/24 [History] amLODIPine BESYLATE/BENAZEPRIL [Lotrel 5-10 mg Capsule] 2 cap PO DAILY 04/27/24 [History] tadalafiL 10 mg PO DAILY PRN 04/27/24 [History] Amiodarone [Cordarone] 400 mg PO BID 30 Days #58 tab 05/02/24 [Rx] Apixaban [Eliquis] 5 mg PO BID 30 Days #60 tab 05/02/24 [Rx] Dapagliflozin Propanediol [Farxiga] 10 mg PO DAILY 30 Days #30 tablet 05/02/24 [Rx] Furosemide [Lasix] 20 mg PO BID 30 Days #60 tablet 05/02/24 [Rx] Metoprolol Tartrate [Lopressor] 50 mg PO BID 30 Days #60 tab 05/02/24 [Rx] Spironolactone [Aldactone] 25 mg PO DAILY 30 Days #30 tablet 05/02/24 [Rx] Follow up Appointment(s)/Referral(s): Leighann De Leon MD [STAFF PHYSICIAN] - 1 Week (Office to call with appointment date and time.) [facility],Clinic [Primary Care Provider] - 1-2 days (Office unavailable to schedule appointment at time of discharge. Please ensure office is aware this is an appointment following a hospital stay.) Patient Instructions/Handouts: Atrial Flutter (DC), Cardioversion (DC) Activity/Diet/Wound Care/Special Instructions: . Activity: As tolerated. Take breaks as needed. Diet: Heart healthy and carb consistent diet. Avoid salts, or foods with hidden salts such as canned or boxed foods and frozen dinners. Extra salt makes your heart work harder and traps the fluid in your body for longer. Special Instructions: Take all of your medications as directed and remember to keep all of your doctor's appointments and follow-up as needed. You are also being discharged home on a blood thinner, Eliquis This is very important to take daily as directed until otherwise advised by your binding dyer-Dr. De Leon. Being that you are being placed on a blood thinner it is very important to watch for any signs of bleeding and notify your doctor im mediately if you notice any bleeding. It is also important to remove any trip hazards such as rugs or loose extension cords from your home to prevent unnecessary falls and if you do experience a fall or head injury, it is extremely important to be evaluated by a medical provider immediately to ensure no internal bleeding. Thank you for allowing us to participate in your care, it was truly a pleasure having you for our patient and again, THANK YOU for your Service, It is ALWAYS an honor having the opportunity to be able to provide care to a [place]!!! . Discharge Disposition: HOME SELF-CARE
--- NOTE | 2024-05-02 11:47 | P.PN ---
Subjective HISTORY OF PRESENT ILLNESS: Patient examined this morning at the bedside. Patient currently denies chest pain or pressure. He denies shortness of breath. He does report some dizziness with postural changes. Patient underwent JOLANTA and cardioversion yesterday. He is maintaining sinus mechanism this morning. Vital signs are stable. 05/02/2024 Patient was supposed to be discharged yesterday but he ended up going back into a flutter with RVR. The patient was started on amiodarone and subsequently converted back to sinus mechanism. Patient has been maintaining sinus mechanism since. He has been up ambulating without difficulty. He denies chest pain or pressure. Denies shortness of breath. Vital signs are stable. PHYSICAL EXAM: VITAL SIGNS: Reviewed. GENERAL: Well-developed in no acute distress. NECK: Supple. No JVD or thyromegaly LUNGS: Respirations even and unlabored. Lungs essentially clear to auscultation bilaterally. HEART: Regular rate and rhythm. S1 and S2 heard. EXTREMITIES: Normal range of motion. No clubbing or cyanosis. Peripheral pulses intact. No lower extremity edema ASSESSMENT: Typical atrial flutter with RVR of unknown duration Status post JOLANTA and cardioversion, April 30, 2024, maintaining sinus mechanism Cardiomyopathy, suspect nonischemic secondary to atrial flutter Mild to moderate CAD per cardiac catheterization 2008 Nicotine dependence PLAN: Continue current cardiac medications Amiodarone taper at discharge: 200 mg twice a day for 1 week, then decrease to 200 mg twice a day for 1 week, then decrease to 200 mg daily Patient is stable for discharge home today from a cardiac standpoint Patient to follow-up in the office with Dr. De Leon in 1 week Nurse practitioner note has been reviewed by physician. Signing provider agrees with the documented findings, assessment, and plan of care documented by PANTS CUTTER as a scribe. Objective - Vital Signs Vital signs: Vital Signs Temp 97.8 F 05/02/24 04:00 Pulse 74 05/02/24 08:55 Resp 18 05/02/24 08:55 BP 147/94 05/02/24 08:55 Pulse Ox 92 L 05/02/24 08:55 FiO2 Intake & Output 05/01/24 05/02/24 05/02/24 18:59 06:59 18:59 Intake Total 680 118 Output Total 500 Balance 180 118 Weight 105.2 kg Intake: IV 20 Invasive Line 1 20 Oral 660 118 Output: Urine 500 Other: Voiding Method Toilet Toilet Toilet Urinal Urinal Urinal # Voids 1 # Bowel Movements 1 - Labs CBC & Chem 7: 05/02/24 08:22 05/02/24 08:22 Labs: Abnormal Lab Results - Last 24 Hours (Table) 05/02/24 05/02/24 Range/Units 08:22 08:22 Hgb 12.0 L (13.0-17.5) gm/dL MCV 79.5 L (80.0-100.0) fL MCH 24.4 L (25.0-35.0) pg MCHC 30.7 L (31.0-37.0) g/dL RDW 16.2 H (11.5-15.5) % Sodium 127 L (137-145) mmol/L Chloride 93 L (98-107) mmol/L Glucose 175 H (74-99) mg/dL Calcium 8.3 L (8.4-10.2) mg/dL ALT 50 H (4-49) U/L
== END 2024-05-02 13:40 | disposition home or self-care (01) | DRG 308 ==
LOC: EC 14:52 → 3SCARD 18:03 → OBSVTOIN 18:04 → 3SCARD 19:57
PROVIDERS: ADMIT Family Medicine; ATTEND Family Medicine
PROC: B24BZZ4 Ultrasonography of Heart with Aorta, Transesophageal (ICD-10-PCS; principal; 2024-04-30 11:00)
PROC: 5A2204Z Restoration of Cardiac Rhythm, Single (ICD-10-PCS; principal; 2024-04-30 11:00)
DX: I48.3 Typical atrial flutter (principal); I50.21 Acute systolic (congestive) heart failure; E87.1 Hypo-osmolality and hyponatremia; E87.8 Other disorders of electrolyte and fluid balance, not elsewhere classified; F17.200 Nicotine dependence, unspecified, uncomplicated; Z71.6 Tobacco abuse counseling; F43.10 Post-traumatic stress disorder, unspecified; I08.1 Rheumatic disorders of both mitral and tricuspid valves; I11.0 Hypertensive heart disease with heart failure; R71.8 Other abnormality of red blood cells; I25.10 Atherosclerotic heart disease of native coronary artery without angina pectoris; I25.5 Ischemic cardiomyopathy; K21.9 Gastro-esophageal reflux disease without esophagitis; Z79.899 Other long term (current) drug therapy; Z88.1 Allergy status to other antibiotic agents; Z88.5 Allergy status to narcotic agent; Z88.0 Allergy status to penicillin; Z28.310 Unvaccinated for COVID-19
CPT/HCPCS: 36415; 71046; 80048; 80053; 81003; 82728; 83540; 83550; 83735; 83880; 84443; 84484; 85025; 85027; 85379; 85610; 85730; 92960; 93005; 93306; 93312; 93320; 93325; 94640; 96365; 96366; 96375; 99285

== ENCOUNTER 2024-08-02 07:03 | Day surgery (SDC) | payer MEDICARE, OTHER ==
[~2024-08-02 07:03] MED LIST: ALPRAZolam 0.25 MG TAB PO PRN; ALPRAZolam 0.5 MG TAB PO PRN; HEPARIN SODIUM,PORCINE (1 ML) 2,500 UNIT in SODIUM CHLORIDE 0.9% 250 ML IRRIGATION PRN; HEPARIN SODIUM,PORCINE 10,000 UNIT in SODIUM CHLORIDE 0.9% 1,000 ML IRRIGATION PRN; NITROGLYCERIN SL TABS 0.4 MG TAB SUBLINGUAL PRN
[2024-08-02] MEDS: SODIUM CHLORIDE 0.9% 1,000 ML in EMPTY BAG 1 BAG IV SCH (07:48)
[2024-08-02] MEDS: ASPIRIN 325 MG TAB PO ONE (07:48)
[2024-08-02 07:49] LABS: Anisocytosis Slight; Basophils # (A) 0.1 k/uL (0-0.2); Basophils % (A) 1 %; Eosinophils # (A) 0.2 k/uL (0-0.7); Eosinophils % (A) 3 %; HCT 46.2 % (39.0-53.0); Lymphocytes # (A) 2.1 k/uL (1.0-4.8); Lymphocytes % (A) 26 %; MCH 26.7 pg (25.0-35.0); MCHC 32.5 g/dL (31.0-37.0); MCV 82.1 fL (80.0-100.0); Mean Platelet Volume 6.6; Microcytosis Slight; Monocytes # (A) 0.7 k/uL (0-1.0); Monocytes % (A) 9 %; Neutrophils # (A) 4.7 k/uL (1.3-7.7); Neutrophils % (A) 59 %; Platelet Count 387 k/uL (150-450); RBC 5.62 m/uL (4.30-5.90); RDW 19.8 % (11.5-15.5)
[2024-08-02 07:54] VITALS: RESP 16; TEMP 97.6
[2024-08-02] MEDS: IV FLUID CONTINUATION 1,000 ML IV ONE (07:54)
[2024-08-02 08:05] LABS: African American GFR (CKD) >90 (>60 ml/min/1.73 sqM); Anion Gap 9 mmol/L; Blood Urea Nitrogen 18 mg/dL (9-20); Calcium 8.8 mg/dL (8.4-10.2); Carbon Dioxide 27 mmol/L (22-30); Chloride 95 mmol/L (98-107); Glucose 84 mg/dL (74-99); Non-African American GFR(CKD) 87 (>60 ml/min/1.73 sqM); Sodium 131 mmol/L (137-145)
[2024-08-02 08:17] LABS: Potassium 4.4 mmol/L (3.5-5.1)
[2024-08-02] MEDS: fentaNYL (PF) 50 MCG/ML 2 ML AMP IVP ONE (09:46)
[2024-08-02] MEDS: LIDOCAINE 1% INJ 10MG/ML (20 ML MDV) SQ ONE ×2 (09:50→09:51)
[2024-08-02] MEDS: VERAPAMIL SYRINGE (5 MG/10 ML) INTRAARTER ONE (09:53)
[2024-08-02] MEDS: MIDAZOLAM 2 MG/2 ML VIAL IVP ONE (09:54)
[2024-08-02] MEDS: HEPARIN SODIUM 1,000 UN/ML (10ML VL) IVP ONE (09:54)
[2024-08-02] MEDS: IOPAMIDOL-370 100ML BTL INJ ONE (10:02)
[2024-08-02] MEDS ORDERED: RX INFO: IV CONTRAST WAS GIVEN 1 EACH MISC MISCELLANE PRN (10:16)
--- NOTE | 2024-08-02 10:22 | P.CARDCATH ---
Date of Procedure: 08/02/24 Description of Procedure: Cardiac Catheterization: The patient is a 69-year-old male with known history of hypertension and hyperlipidemia, history of CAD who has been complaining of progressive dyspnea and had evidence of cardiomyopathy. He had an abnormal MPI. Recommendations were made regarding cardiac catheterization, the risks and the complications were discussed with the patient who is in full understanding and agreement. Procedure Description: Patient was brought to quality assurance/r&d lab technician in fasting semi-sedated state after receiving Fentanyl and Benadryl achieiving moderate conscious sedated state. Using Xylocaine Anesthesia and modified Seldinger technique, a 6-Turkmen sheath was introduced in the right radial artery . Subsequently, selective coronary angiography was performed using a 5-Turkmen 3.5 bend Quan catheter. Multiple views of the coronary artery including hemiaxial views were obtained. Following that, catheter and sheath were removed. Hemostasis was obtained with deployment of vascular band . There was no immediate complication. Patient was returned to room in stable condition. Of note, the patient received a total of 5000 units of intravenous heparin as well as intra-arterial verapamil. Findings: Fluoroscopy: Calcifications of all the coronary arteries was noted Left main: This is a short size vessel, bifurcating into LAD and left circumflex, left main has no obstructive disease. LAD: This is a large size vessel, reaching to the apex, giving rise to a moderately sized diagonal branch in the proximal segment. The LAD has mild plaque in the midsegment of 20 to 30%, the rest of the vessel has no high-grade stenosis Left circumflex: This is a large nondominant vessel giving rise to a large obtuse marginal branch. The left circumflex proximally is ectatic, and has a 20 to 30% plaque with no high-grade stenosis RCA: This is a large dominant vessel very tortuous, has a superior takeoff. The right coronary artery and mid segment has a 20 to 30% plaque with no high-grade stenosis Left Ventriculogram: Not performed Conclusion: 1. Calcified coronary arteries 2. Mild triple-vessel disease 3. Right dominance 4. Tortuous right coronary artery Recommendations: I have recommended to continue medical therapy with the aggressive coronary risks modifications initiated. The findings and the recommendations were discussed with the patient and the family and they were in full understanding and agreement. Duration of sedation is 15 minutes.
[2024-08-02] MEDS ORDERED: SODIUM CHLORIDE 0.9% 1,000 ML IV SCH (10:30)
[2024-08-02 13:14] VITALS: BP 126/71; PULSE 54
[2024-08-02] MEDS ORDERED: AMIODARONE 200 MG TAB PO SCH (21:00)
[2024-08-02] MEDS ORDERED: METOPROLOL TARTRATE 50 MG TAB PO SCH (21:00)
[2024-08-03] MEDS ORDERED: amLODIPine 10 MG TAB PO SCH (09:00)
[2024-08-03] MEDS ORDERED: SPIRONOLACTONE 25 MG TAB PO SCH (09:00)
[2024-08-03] MEDS ORDERED: lisinopriL 20 MG TAB PO SCH (09:00)
== END 2024-08-02 14:06 | disposition home or self-care (01) ==
LOC: CATHCVL 07:03
PROVIDERS: ATTEND Internal Medicine Interventional Cardiology
DX: R94.39 Abnormal result of other cardiovascular function study
CPT/HCPCS: 80048; 85025; 93454

== ENCOUNTER → 2024-08-26 | Outpatient (CLI) | payer OTHER ==
[2024-08-26 11:41] LABS: African American GFR (CKD) >90 (>60 ml/min/1.73 sqM); Blood Urea Nitrogen 10 mg/dL (9-20); Non-African American GFR(CKD) 82 (>60 ml/min/1.73 sqM)
--- NOTE | 2024-08-26 12:20 | CT ---
EXAMINATION TYPE: CT angio chest DATE OF EXAM: 08/26/2024 12:12 PM COMPARISON: None HISTORY: THORACIC AORTIC ANEURYSM CT DLP: 1138 mGycm Automated exposure control for dose reduction was used. CONTRAST: CTA scan of the thorax is performed with IV Contrast, patient injected with 100 mL of Isovue 370, pul monary embolism protocol. . FINDINGS: LUNGS: There is mild atelectasis in the right lower lobe otherwise the lungs are clear. There is no pleural effusion or pneumothorax. The aortic root is 3.7 cm in the ascending thoracic aorta is 3.9 cm There is no mediastinal, hilar or axillary adenopathy. Limited scanning through the upper abdomen reveals no gross abnormality. No focal osseous lesions are seen. IMPRESSION: 1. Thoracic aortic root is 3.7 cm in the ascending thoracic aorta is 3.9 cm. 2. Mild atelectasis in the right lower lobe. OTHER: No additional significant abnormality is seen. IMPRESSION: [facility], , 08/26/2024 12:18 PM
== END | disposition home or self-care (01) ==
LOC: RADCTMAIN 08-19 12:26
PROVIDERS: ATTEND Internal Medicine Interventional Cardiology
DX: I71.20 Thoracic aortic aneurysm, without rupture, unspecified
CPT/HCPCS: 36415; 71275; 82565; 84520